=== PATIENT | female | born 1980 ===

== ENCOUNTER 2019-01-26 06:18 | Day surgery (SDC) | payer BC ==
[~2019-01-26] VITALS: Ht 172.7 cm; Wt 65.3 kg
[2019-01-26] VITALS (13 sets, daily range): BP systolic 116–128; BP diastolic 58–77
--- NOTE | 2019-01-26 05:00 | History and Physical Report ---
DATE OF ADMISSION: 01/26/2019 NOTE: VERY POOR AUDIO HISTORY OF PRESENT ILLNESS: The patient is 38-year-old, G1, P0 with a history of left ovarian mass 6 cm in diameter. The patient presented to me in December 2008 for a routine exam and inability to get for more than 6 months. An ultrasound was performed which showed a 6 cm left ovarian cyst that appeared hemorrhagic. She had a smaller approximately 2 cm right ovarian hemorrhagic cyst. Upon further discussion with the patient, she recalled that one year ago she had an ultrasound that revealed a 5 cm hemorrhagic cyst in the same ovary. The patient was counseled by me in December that this could be an endometrioma versus a hemorrhagic cyst and a followup is scheduled. The patient was seen on 01/22/2019 for follow up The right hemorrhagic cyst was again noted. Presumptive diagnosis of endometriosis with bilateral hemorrhagic cysts was made presumptively and the patient was scheduled for laparoscopy. Please note that on exam, the patient also has a subserosal fibroid. She also is interested to get as soon as possible and we decided together with her and partner to most likely not remove the asymptomatic fibroid. PAST MEDICAL HISTORY: SAB a year ago. PAST SURGICAL HISTORY: None. ALLERGIES: None. SOCIAL HISTORY: The patient drinks alcohol socially. She does not smoke. Does not use drugs and no alcohol use. FAMILY HISTORY: Mother has coronary artery disease. REVIEW OF SYSTEMS: Consistent with irregular menses and an endocervical polyp. PHYSICAL EXAMINATION: GENERAL: Female appears in stated age. Height 6 feet 7 inches, weight 125 pounds. VITAL SIGNS: Blood pressure 110/70, respiratory rate 18. HEAD AND NECK: Pupils are equal and reactive to light. LUNGS: Clear to auscultation bilaterally. CARDIAC: Regular rate and rhythm. ABDOMEN: Soft, nondistended, and nontender. BIMANUAL EXAM: Enlarged uterus with 4 cm subserosal fibroid, left ovarian mass 6 cm in height and enlarged ovary with right endometrioma. RECTAL: No nodularity. No masses. Cervix within normal limits. ASSESSMENT: A 38-year-old female with large left ovarian endometrioma and right endometrioma. PLAN: Laparoscopy, bilateral cystectomy, hysteroscopy, possible ablation of endometriosis, possible myomectomy. Marion Walters M.D. DR: Keisha JOB#: [id number] CC: LEORA
[~2019-01-26 06:18] MED LIST: ECHINACEA380 MG PO; LYSINE1000 MG PO; MONOLAURIN PO; ONE A DAY PREN1 EACH ORAL
[2019-01-26] MEDS ORDERED: cefOXitin Sod 2 GM in D5W 110 ML IVPB ONE (07:00)
--- NOTE | 2019-01-26 07:12 | Anethesia Preoperative Eval ---
Anesthesia Pre-op PMH/ROS General Date of Evaluation: Jan 26, 2019 Anesthesiologist: Mitchell ASA Score: ASA 1 Mallampati Score Class I : Soft palate, uvula, fauces, pillars visible Class II: Soft palate, uvula, fauces visible Class III: Soft palate, base of uvula visible Class IV: Only hard plate visible Mallampati Classification: Class I Surgeon: Selena Diagnosis: Bilateral ovarian cysts, and uterine fibroid Surgical Procedure: D&C hysteroscopy, laparoscopic CO2 laser bilateral ovarian cystectomy Anesthesia History: none Family History: no anesthesia problems Allergies: Coded Allergies: No Known Allergies (Unverified , 01/25/19) Medications: see eMAR Patient NPO?: Yes NPO Date: Jan 25, 2019 NPO Time: 20:00 Past Medical History Cardiovascular: Denies: HTN, CAD, [place], valve dz, arrhythmia, other Pulmonary: Denies: asthma, COPD, BRISEIDA, other Gastrointestinal/Genitourinary: Denies: GERD, CRI, ESRD, other Neurologic/Psychiatric: Denies: dementia, CVA, depression/anxiety, TIA, other Endocrine: Denies: DM, hypothyroidism, steroids, other HEENT: Denies: cataract (L), cataract (R), glaucoma, TIMBI-SHA SHOSHONE (L), TIMBI-SHA SHOSHONE (R), other Hematology/Immune: Denies: anemia, DVT, bleeding disorder, other Musculoskeletal/Integumentary: Denies: OA, RA, DJD, DDD, edema, other PSxH Narrative: Denies Anesthesia Pre-op Phys. Exam Physician Exam Last Vital Signs Date Time Temp Pulse Resp B/P (MAP) Pulse Ox O2 Delivery O2 Flow Rate FiO2 01/26/19 07:03 Room Air 01/26/19 06:53 97.6 64 18 116/71 98 Constitutional: NAD Cardiovascular: RRR Respiratory: CTA Airway Exam Mallampati Score: Class I MO: full ROM: full Teeth: intact Anesthesia Pre-op A/P Labs see chart Urine Test Test 01/26/19 06:25 Urine HCG, Qualitative Negative (NEGATIVE) Studies Pre-op Studies: EKG - sr Risk Assessment & Plan Assessment: ASA I Plan: GA Status Change Before Surgery: No Pre-Antibiotics Drug: Cefoxitin 1g Given Within 1 Hr of Incision: Yes Luciana Mosqueda MD Jan 26, 2019 07:12
[2019-01-26] MEDS ORDERED: cefOXitin 1gm Inj ONE (07:22)
[2019-01-26] MEDS ORDERED: Rocuronium Bromide 50mg/5ml Inj IV ONE (07:23)
[2019-01-26] MEDS ORDERED: Lidocaine 1% MPF 10mg/ml 5ml ONE (07:24)
[2019-01-26] MEDS ORDERED: fentaNYL 100 mcg/2 mL IV ONE (07:24)
[2019-01-26] MEDS ORDERED: Midazolam 2mg/2ml Inj ONE (07:24)
[2019-01-26] MEDS ORDERED: Propofol 200mg/20ml IV ONE (07:24)
[2019-01-26] MEDS ORDERED: Ropivacaine 5mg/ml Vial 30ml INJ ONE (07:27)
[2019-01-26] MEDS ORDERED: Interceed TOPIC ONE (07:28)
[2019-01-26] MEDS ORDERED: Sterile Water Irrig 1000ml IRRIG ONE (07:30)
[2019-01-26] MEDS ORDERED: Ketorolac 30mg Inj ONE (07:30)
[2019-01-26] MEDS ORDERED: LR 1000ml ONE (07:30)
[2019-01-26] MEDS ORDERED: NS 275ml ONE (07:30)
[2019-01-26] MEDS ORDERED: NS Irrig 1000ml ONE (07:30)
[2019-01-26] MEDS ORDERED: Metoclopramide 10mg/2ml Inj ONE (07:30)
[2019-01-26] MEDS ORDERED: Dexamethasone 4mg/ml vial ONE (07:30)
[2019-01-26] MEDS ORDERED: LR 1000ml 1,000 ML IVLG SCH (07:34)
[2019-01-26] MEDS ORDERED: cefOXitin 2gm Inj ONE (07:35)
--- NOTE | 2019-01-26 07:38 | Pre-Procedure Note/Attestation ---
Pre-Procedure Note/Attestation Complete Prior to Procedure Planned Procedure: bilateral Procedure Narrative: CO2 laser pelviscopy, bilateral cystectomies, ablation of endometriosis, possible myomectomy, Hysteroscopy dilation and curettage Indications for Procedure Pre-Operative Diagnosis: bilateral hemorrhagic cysts, fibroid and polyp Attestation I attest that I discussed the nature of the procedure; its benefits; risks and complications; and alternatives (and the risks and benefits of such alternatives ), prior to the procedure, with the patient (or the patient's legal service support representative). I attest that, if there was a reasonable possibility of needing a blood transfusion, the patient (or the patient's legal service support representative) was given the [place] Department [facility] [employer] [facility] standardized written summary, pursuant to the [place] Blood Safety Act ([place] Health and Safety Code # 1645, as amended). I attest that I re-evaluated the patient just prior to the surgery and that there has been no change in the patient's H&P, except as documented below: Marion Walters MD Jan 26, 2019 07:37
[2019-01-26] MEDS ORDERED: Tylenol #3 tab (300mg/30mg) ORAL PRN (07:45)
[2019-01-26] MEDS ORDERED: D5 1/2NS 1,000 ML IV SCH (07:45)
[2019-01-26] MEDS ORDERED: fentaNYL 100 mcg/2 mL IV PRN (07:45)
[2019-01-26] MEDS ORDERED: DiphenhydrAMINE 50mg/ml Inj IVP PRN ×2 (07:45)
[2019-01-26] MEDS ORDERED: Midazolam 2mg/2ml Inj IVP PRN (07:45)
[2019-01-26] MEDS ORDERED: HYDROmorphone 1mg/ml Carpuject SUBQ PRN (07:45)
[2019-01-26] MEDS ORDERED: Ketorolac 30mg Inj IV PRN (07:45)
[2019-01-26] MEDS ORDERED: HYDROcodone/Acetamin 5/325 tab ORAL PRN (07:45)
[2019-01-26] MEDS ORDERED: ProvayBlue 5mg/ml 10ml amp INJ ONE (07:45)
[2019-01-26] MEDS ORDERED: LORazepam Inj 2mg/ml 1ml IV PRN (07:45)
[2019-01-26] MEDS ORDERED: Metoclopramide 10mg/2ml Inj IVP PRN (07:45)
[2019-01-26] MEDS ORDERED: Hydromorphone 0.5mg/0.5ml inj IVP PRN (07:45)
[2019-01-26] MEDS ORDERED: NS Irrig 1000ml IRRIG ONE (08:26)
[2019-01-26] MEDS ORDERED: NS 275ml IRRIG ONE (09:50)
--- NOTE | 2019-01-26 10:34 | Immediate Post-Op Evaluation ---
Immediate Post-Op Evalulation Immediate Post-Op Evalulation Procedure: D&C, hysteroscopy, laparoscopic bilateral ovarian cystectomy Date of Evaluation: Jan 26, 2019 Time of Evaluation: 10:33 IV Fluids: 1.6L Blood Products: 0 Estimated Blood Loss: min Urinary Output: 400 Blood Pressure Systolic: 116 Blood Pressure Diastolic: 67 Pulse Rate: 91 Respiratory Rate: 16 O2 Sat by Pulse Oximetry: 100 Temperature (Fahrenheit): 97.7 Pain Score (1-10): 0 Nausea: No Vomiting: No Complications 0 Patient Status: awake, reacts, patent, none Hydration Status: adequate Drug: Cefoxitin 2g Given Within 1 Hr of Incision: Yes Time Given: 07:45 Luciana Mosqueda MD Jan 26, 2019 10:34
--- NOTE | 2019-01-26 10:37 | 48 Hour Post Anesthesia Eval ---
Post Anesthesia Evaluation Procedure: D&C, hysteroscopy, laparoscopic bilateral ovarian cystectomy Date of Evaluation: Jan 26, 2019 Airway: patent Nausea: No Vomiting: No Pain Intensity: 0 Hydration Status: adequate Cardiopulmonary Status: at baseline Mental Status/LOC: patient returned to baseline Post-Anesthesia Complications: 0 Follow-up care needed: ready to discharge Luciana Mosqueda MD Jan 26, 2019 10:36
--- NOTE | 2019-01-27 07:53 | Brief Operative Note ---
Immediate Post Operative Note Operative Note Pre-op Diagnosis: bilateral hemorrhagic cysts, fibroid and polyp Procedure: CO2 laser pelviscopy/ bilateral cystectomies/ ablation of endometriosis/ hysteroscopy removal of endocervical polyp Post-op Diagnosis: same as pre-op plus - bilateral endometriomas and endocervical polyp and moderate endometriosis Surgeon: dickson Decal Maker: Jamilah Anesthesia: general Specimen: yes Complications: none Condition: stable Fluids: crystalloid Estimated Blood Loss: volume Drains: none - 250 cc Implant(s) used?: No Marion Walters MD Jan 27, 2019 07:53
--- NOTE | 2019-01-28 03:45 | Operative Note - Dictated ---
DATE OF OPERATION: 01/27/2019 PREOPERATIVE DIAGNOSIS: Bilateral ovarian masses . POSTOPERATIVE DIAGNOSIS: Same and severe endometriosis. PROCEDURE: 1. CO2 laser pelviscopy. 2. Bilateral ovarian cystectomies. 3. Ablation of endometriosis. 4. Hysteroscopy. 5. Removal of endocervical polyp. 6. Hydropertubation ESTIMATED BLOOD LOSS: 250 mL. SURGEON: Marion Walters M.D. BARREL REPAIRER: Ember Askew M.D. ANESTHESIOLOGIST: Dr. Cheng. ANESTHESIA: General endotracheal. FLUIDS: Crystalloid. COMPLICATIONS: NONE PROCEDURE IN DETAIL: After ensuring informed consent, the patient was taken to the operating room where general anesthesia was induced. The patient was sterilely prepped and draped. She was placed in dorsal lithotomy position with legs in Buddy stirrups. Weighted speculum was placed in the vagina and cervix was dilated to 8 Hegar dilator. Hysteroscope was placed inside the uterine cavity. Uterine cavity was distended with normal saline. Normal large uterine cavity was observed. Bilateral tubal ostia were observed. Cavity was sounded to 8.5 cm. Hysteroscope was withdrawn and the endocervical polyp was removed with polyp forceps. Next, ZUMI-type manipulator was placed inside the uterus. Next, attention was turned to the abdomen where a small incision was made inside the umbilicus after infiltration with Naropin. Veress needle was placed inside the incision. Intraperitoneal placement was confirmed with low opening pressures. Next, incision was expanded and a 10 mm trocar was placed inside the umbilicus and intraperitoneal placement was confirmed with the camera. Next, two lateral 5 mm trocars were placed under direct visualization after infiltration with Naropin. Pelvis was explored. There was a large left ovarian mass and right ovary was enlarged by a 3-4cm cyst. There were moderate adhesions between the right ovary and pelvic sidewall. There were multiple implants of endometriosis on the right ovary bilateral uterosacrals and in the posterior cul-de-sac. Next, CO2 laser was attached. Using CO2 laser, the capsule of left ovary was opened. The cyst was grasped and using both sharp, blunt and hydro dissections, the cyst capsule was teased away from underlying ovarian stroma. Next, excellent hemostasis was assured with judicious use of bipolar cautery. Next, attention was turned to the right ovary that was grasped, adhesions were removed with Co2 laser and blunt dissection. The right ovary was opened with CO2 laser and by blunt and sharp dissection the cyst capsule was teased away from underlying ovarian stroma and removed. Excellent hemostasis of the right ovary was assured as well. Next, pelvis was copiously irrigated. Endometriosis implants were ablated using Co2 laser. There was bleeding on the left broad ligament that was cauterized and excellent hemostasis was assured. Dilute solution of methylene blue was used to chromopertubate the tubes. Both tubes appeared to be normal with free spill from fimbrial ends. Next, pelvis was copiously irrigated and irrigant was suctioned off. All trocars were removed under direct visualization. Intraumbilical fascial incision was closed with #0 Vicryl. Skin was closed with 4-0 Monocryl in all three places and Steri-Strips were placed over all the three incisions. At the end of the procedure, all instrument and lap counts were correct x2. The patient was taken to the recovery area extubated and in stable condition. Marion Walters M.D. DR: Juhi JOB#: [id number] CC: LEORA
== END 2019-01-26 15:30 | disposition home or self-care (01) ==
LOC: SUR 06:18
DX: N80.1 Endometriosis of ovary (principal); D25.9 Leiomyoma of uterus, unspecified; N84.1 Polyp of cervix uteri; N83.202 Unspecified ovarian cyst, left side; N83.201 Unspecified ovarian cyst, right side; Z82.49 Family history of ischemic heart disease and other diseases of the circulatory system
CPT/HCPCS: 49322; 58558; 81025; J0694; J1100; J1170; J1885; J2250; J2405; J2704; J2765; J2795; J3010; J7050; Q9968; 94003; 94150